=== PATIENT | male | born 1995 | race African-American/Black ===

== ENCOUNTER 2019-08-17 13:45 | Emergency (ER) | payer OTHER ==
[~2019-08-17] VITALS: Ht 185.4 cm; Wt 142.4 kg
[2019-08-17 13:47] VITALS: BP 126/81
[2019-08-17] MEDS ORDERED: CYCLOBENZAPRINE5 MG PO (14:04)
[2019-08-17] MEDS ORDERED: MOBIC7.5 MG PO (14:04)
== END 2019-08-17 14:12 | disposition home or self-care (01) ==
LOC: ER 13:45
DX: M62.830 Muscle spasm of back (principal)

== ENCOUNTER 2020-09-30 21:39 | Emergency (ER) | payer OTHER ==
[~2020-09-30] VITALS: Ht 182.9 cm; Wt 154.2 kg
[~2020-09-30 21:39] MED LIST: CYCLOBENZAPRINE5 MG PO; MOBIC7.5 MG PO
[2020-09-30 22:17] LABS: ABSOLUTE NEUTROPHILS 3.3 thou/uL (1.4-8.2); BASOPHILS 0.5 % (0.0-2.0); EOSINOPHILS 0.4 % (0.0-3.0); HEMATOCRIT 42.8 % (42.0-52.0); HEMOGLOBIN 14.2 gm/dL (14.0-18.0); LYMPHOCYTES 16.3 % (24.0-44.0); MCH 28.9 pg (26.0-34.0); MCHC 33.2 g/dL (28.0-37.0); MCV 87.1 fL (80.0-100.0); MONOCYTES 7.1 % (1.0-8.0); PLATELET COUNT 210 thou/uL (150-400); POLYS 75.7 % (36.0-66.0); RBC 4.91 mil/uL (4.50-6.00); WBC 4.3 thou/uL (4.0-11.0)
[2020-09-30 22:52] LABS: ANION GAP 9 mmol/L (7-16); BUN 10 mg/dL (7-18); CALCIUM 8.5 mg/dL (8.5-10.1); CHLORIDE 99 mmol/L (98-107); CO2 28 mmol/L (21-32); CREATININE 1.3 mg/dL (0.7-1.3); GLUCOSE 107 mg/dL (74-106); POTASSIUM 4.2 mmol/L (3.5-5.1); SODIUM 136 mmol/L (136-145)
[2020-09-30 22:59] LABS: ALBUMIN 3.9 g/dL (3.4-5.0); SGOT 22 U/L (15-37); SGPT 30 U/L (30-65); TROPONIN-I <0.06 ng/mL (<0.06)
[2020-10-01 01:51] VITALS: BP 99/59
--- NOTE | 2020-10-01 12:23 | EKG ---
[address] [address] ELECTROCARDIOGRAM REPORT Name: MARY KAY HARRYJohnny JACKMAN Room #: DEP [facility]ENTERMer[facility]#: [id number] Admission: 09/30/20 Attend Phys: Discharge: 10/01/20 Date of : [birth year] Report #: [id number] [facility] ED Test Date: 2020-09-30 Test Time: 21:47:34 Pat Name: CINDI HARRY Department: Room: Gender: Brake Operator Sheet Metal: WILLOW : 1995 Requested By: Jessica Pandey Order Number: [id number] MD: Edward Rios Measurements Intervals Bonnie Rate: 123 P: 49 LA: 148 QRS: 54 QRSD: 77 T: 9 QT: 277 QTc: 397 Interpretive Statements Sinus tachycardia Baseline wander in lead(s) V3 No previous ECG available for comparison Electronically Signed On 10-01-2020 12:23:03 CDT by Edward Rios [email or web address] <ELECTRONICALLY SIGNED> By: Edward Rios MD 10/01/20 1223 2147 2147 Edward Rios MD /AKILA
== END 2020-10-01 02:26 | disposition home or self-care (01) ==
LOC: ER 21:39
PROVIDERS: Nurse Practitioner Family
DX: U07.1 COVID-19 (principal); R00.0 Tachycardia, unspecified; R07.89 Other chest pain